=== PATIENT | male | born 1950 | race Caucasian/White ===

== ENCOUNTER 2016-10-06 12:16 | Emergency (ER) | payer BC ==
[2016-10-06 12:57] VITALS: BP 137/78
--- NOTE | 2016-10-06 15:17 | CT ---
INDICATION: Flushed, dizzy, and blurred vision one hour ago. CT HEAD WITHOUT CONTRAST: Serial contiguous 2.5 and 5-mm sections were obtained through the brain without contrast 10/06/2016. No comparisons were available. Total Exam DLP = 949.36 mGy-cm. The visualized mastoid air cells appear to be well aerated. Paranasal sinuses revealed thickening of the linings of the frontal air cells and multiple ethmoidal air cells, as well as the left-sided sphenoidal air cell with a retention cyst in the right sphenoidal air cell and in a posterior left ethmoidal air cell. The maxillary antra were not fully visualized. Findings suggest the possibility of sinusitis. No shift of midline structures, ventricular abnormalities, or abnormal areas of density could be identified. There is some minimal calcification in the internal carotid arteries. IMPRESSION: 1. No acute intracranial abnormality. 2. Possible sinusitis. 3. Atherosclerotic cerebrovascular disease with arterial calcifications in the internal carotid arteries. Report was called to Dr. Orr at 1330 hours, 10/06/2016. [facility]
--- NOTE | 2016-10-06 15:22 | CR ---
INDICATION: Chest pain, dizziness. CHEST: PA and lateral views of the chest were obtained. The costophrenic angles were not fully included on the study. The heart, mediastinum, and bony thorax were unremarkable, except to note minimal calcification in the arch of the aorta. Overlying EKG leads are noted. An active infiltrate or effusion was not identified. Slightly prominent AP diameter and flattened diaphragm leaf suggests COPD - correlate clinically. Report was called to Dr. Orr at 1330 hours, 10/06/2016. [facility]
--- NOTE | 2016-10-07 00:45 | ER ---
DATE SEEN: 10/06/2016 Mr. Gerald Cook was seen at 1225 hours in the afternoon. /[id number] JAYCOB/ESPINOZA
--- NOTE | 2016-10-12 10:48 | ER ---
DATE SEEN: 10/06/2016 HISTORY OF PRESENT ILLNESS: This 65-year-old male, who works at [employer], noted one half hour after he came to work, he felt slightly dizzy. He carried a lightweight 5-pound ladder from 40 feet and sat down. He had slight blurred vision, did not clear right away. He then felt mild dizziness. He has a slight throbbing headache. He just had his lisinopril increased from 20 mg to 40 mg daily. He denies chest pain, shortness of breath, coughing. Compression on his chest and palpitations. He did not eat breakfast, but he had a caramel roll plus coffee. Last night, he had 3 drinks. Normally, he drinks more on the weekend, but he did not because he had to work. The patient denies feeling dizzy. He had some slight throbbing biparietal new headache, 3/10 to 4/10 intensity. He had a colonoscopy 2 weeks ago, had 15 polyps removed. Next day, he had bright red rectal bleeding, and this "gushed out", but then there was no further bleeding since then. The patient denies any unusual stressors. MEDICATIONS: 1. Lisinopril 40 mg daily. 2. Aspirin 81 mg given today. ALLERGIES: None. REVIEW OF SYSTEMS: HEENT: Denies compromise in vision in the past, eye trauma, sinusitis, congested cough, but he has had a cough on and off. Denies postnasal drip. Denies seasonal allergies. Denies neck stiffness, or previous head trauma. Denies chest pain, irregular heartbeat, or shortness of breath. He does have frequent cough, especially in the morning and before he gets a smoke. He usually smokes within a half an hour or earlier when he gets up in the morning. Denies head trauma or sinus congestion. He coughs intermittently more notably early in the morning after he gets up before he has a smoke, but he usually smokes early, within less than half hour after getting out of bed. The patient denies chest pain, irregular heartbeat, shortness of breath. He does have a cough intermittently. He denies abdominal discomfort, gastrointestinal complaints, blood in the stool, black tarry stool, diarrhea, constipation, changes in bowels. Denies frequency, urgency, or dysuria. No difficulty passing urine. Denies musculoskeletal complaints, joint aches, or previous fractures. PSYCHIATRIC: Negative. Denies excessive worry. Denies hot or cold intolerance or thyroid disease. PHYSICAL EXAMINATION: VITAL SIGNS: Blood pressure 159/89, heart rate 90, respirations 18, oxygen saturation 98%. HEENT: Alert man, who is mildly tanned, and he also looks like slight sunburn and/or flushed face. PERRLA intact. Eyegrounds are normal in appearance. No hemorrhage, exudates, or abnormality of the vascular structures. No AV nicking nor unusual linear drusen or unusual linear abnormalities. EOMs are normal. Pharynx is without abnormality. No thyromegaly or masses. No cervical adenopathy of the neck. NECK: Supple. No tenderness in the neck. LUNGS: Clear to auscultation without rales, rhonchi, or wheezes. HEART: S1, S2. No murmur. No irregular rate and rhythm. No chest wall discomfort that is reproducible. ABDOMEN: Soft. No guarding, no abdominal discomfort, no hepatosplenomegaly. EXTREMITIES: Without edema. Deep tendon reflexes in the upper and lower extremities are symmetrical 1+ normoactive. Cranial nerves 2 through 12 intact, oriented x3. Gait intact. Strength intact in upper and lower extremities. LABORATORY DATA: CT report: Dr. Silver noted that he has ethmoid and frontal sinus inflammation plus sphenoid and maxillary sinus involved the former 2 are greater than the latter. CT of the head is without abnormality. DIAGNOSES: Probable sinusitis, atherosclerotic cerebrovascular changes of internal arteries. LABORATORY FINDINGS: White count is normal at 11,900, PMNs 64, lymphocytes 24, monos 5, and platelets 304,000. The patient's laboratory findings are all normal. Troponin is less than 0.01. The alkaline phosphatase is low at 54. Blood culture is obtained. Troponin is negative. ASSESSMENT AND PLAN: 1. The patient treated with Augmentin 875 mg b.i.d. for diagnosis of frontal and ethmoidal sinusitis. Perhaps, this may be something that affected his vision. 2. Chronic obstructive pulmonary disease. 3. He has had calcification of the aorta and internal carotid. 4. Possibility of transient ischemic attack, remote. 5. Chronic smoking. He has been advised and he needs to discontinue smoking. 6. Treat with Augmentin for sinusitis. Follow up with doctor in a week. /[id number] JAYCOB/ESPINOZA
== END 2016-10-06 14:10 | disposition home or self-care (01) ==
LOC: FB.ED 12:16
DX: J32.2 Chronic ethmoidal sinusitis (principal); J32.1 Chronic frontal sinusitis; I67.2 Cerebral atherosclerosis; H53.8 Other visual disturbances; I70.0 Atherosclerosis of aorta; J44.9 Chronic obstructive pulmonary disease, unspecified; Z79.899 Other long term (current) drug therapy; Z79.82 Long term (current) use of aspirin
CPT/HCPCS: 36415; 70450; 71020; 80053; 84484; 85025; 86140; 87040; 93005; 99285